=== PATIENT | male | born 2000 | race Hispanic/Latino ===

== ENCOUNTER 2024-02-20 02:09 | Emergency (ER) | payer BC, SELFPAY ==
[2024-02-20 02:33] VITALS: BP 127/76; PULSE 65; RESP 13; TEMP 36.4; O2SAT 99
--- NOTE | 2024-02-20 02:56 | ED.GENADULT ---
HPI - General Adult General Chief complaint: Back Pain/Injury Stated complaint: Low back pain Time Seen by Provider: 02/20/24 02:43 History of Present Illness HPI narrative: patient is a 23-year-old gentleman who presents emergency department chief complaint of left-sided low back pain. Patient reports yesterday he was lifting up a relative reports that he felt pulling in his back the patient denies bowel or bladder dysfunction denies numbness or tingling reports the pain is worse with movement. The patient denies fever denies history of IV drug use. The patient reports no history of cancer no history of trauma Related Data Allergies Allergy/AdvReac Type Severity Reaction Status Date / Time No Known Allergies Allergy Verified 02/20/24 02:59 Review of Systems Review of Systems: A 10 system review of systems was completed on the patient and is negative except for what is stated in the HPI. Nursing and ancillary documentation was reviewed. Exam Narrative: GENERAL: Well-appearing, well-nourished, and in no acute distress. HEAD: Normocephalic, atraumatic. EYES: PERRLA and EOMI. ENT: Nares clear, no rhinorrhea or epistaxis. Mucous membranes moist. NECK: Supple. CHEST: Clear to auscultation. No respiratory distress. HEART: Regular rate and rhythm. No murmur heard. Normal peripheral pulses. ABDOMEN: Soft, nontender, nondistended, normal active bowel sounds. EXTREMITIES: Normal range of motion. No edema. SKIN: Warm, dry, no rash. NEURO: No focal deficits. Alert and oriented x3. no saddle anesthesia no footdrop PSYCH: Normal mood and affect. Course Vital Signs Vital signs: Vital Signs Temperature 36.4 C L 02/20/24 02:33 Pulse Rate 65 02/20/24 02:33 Respiratory Rate 13 02/20/24 02:33 Blood Pressure 127/76 02/20/24 02:33 Pulse Oximetry 99 02/20/24 02:33 Oxygen Delivery Room Air 02/20/24 02:33 Temperature 36.4 C L 02/20/24 02:33 Pulse Rate 65 02/20/24 02:33 Respiratory Rate 13 02/20/24 02:33 Blood Pressure 127/76 02/20/24 02:33 Pulse Oximetry 99 02/20/24 02:33 Oxygen Delivery Room Air 02/20/24 02:33 Medical Decision Making MDM Narrative Medical decision making narrative: differential diagnosis includes lumbar strain the patient shows no signs of cauda equina syndrome no signs of acute fracture no signs of neurological dysfunction. At this time imaging is not warranted the patient be discharged home on anti-inflammatories muscle relaxers and Lidoderm patches Vital Signs Vital Signs: Vital Signs Temperature 36.4 C L 02/20/24 02:33 Pulse Rate 65 02/20/24 02:33 Respiratory Rate 13 02/20/24 02:33 Blood Pressure 127/76 02/20/24 02:33 Pulse Oximetry 99 02/20/24 02:33 Oxygen Delivery Room Air 02/20/24 02:33 Temperature 36.4 C L 02/20/24 02:33 Pulse Rate 65 02/20/24 02:33 Respiratory Rate 13 02/20/24 02:33 Blood Pressure 127/76 02/20/24 02:33 Pulse Oximetry 99 02/20/24 02:33 Oxygen Delivery Room Air 02/20/24 02:33 Discharge Plan Discharge Clinical Impression: Strain of lumbar region Patient Disposition: Home, Self-Care Condition: Stable Instructions: Antibiotic Form, Back Pain (ED), Lower Back Exercises (ED) Prescriptions: New lidocaine [Lidoderm] 5 % adhesive patch,medicated See Rx Instructions .ROUTE .COMPLEX Qty: 15 0RF Rx Instructions: leave on most painful area for up to 12 hrs cyclobenzaprine 10 mg tablet 10 mg PO TID PRN (Reason: muscle spasm) Qty: 21 0RF diclofenac potassium 50 mg tablet 50 mg PO TID PRN (Reason: pain) Qty: 30 0RF Follow-up/Referrals: Jean-Paul Mckinnon MD [Physician] - UNKNOWN,DOCTOR [Primary Care Provider] - Time of Disposition: 03:00
[2024-02-20] MEDS: KETOROLAC 30 MG/ML VIAL (*BKC) IM (03:05)
[2024-02-20] MEDS: CYCLOBENZAPRINE HCL 10 MG TABLET PO (03:05)
[2024-02-20] MEDS: LIDOCAINE 5% PATCH 1 PATCH TRANSDERM (03:06)
[2024-02-20 03:29] VITALS: BP 127/76; PULSE 65; RESP 13; O2SAT 99
== END 2024-02-20 03:31 | disposition home or self-care (01) ==
LOC: ANHED 03:00
PROVIDERS: Emergency Provider Emergency Medicine
DX: S39.012A Strain of muscle, fascia and tendon of lower back, initial encounter (principal); X50.0XXA Overexertion from strenuous movement or load, initial encounter
CPT/HCPCS: 96372; 99283; A9270; J1885